=== PATIENT | male | born 1960 | race Caucasian/White ===

== ENCOUNTER → 2022-07-21 08:31 | Outpatient (BNVA) | payer OTHER, SELFPAY | PROVIDERS: Visit Provider Surgery | DX: Z12.11 Encounter for screening for malignant neoplasm of colon (principal) | CPT/HCPCS: 99203 ==

== ENCOUNTER 2022-11-11 06:10 | Day surgery (SDC) | payer OTHER, SELFPAY ==
[2022-11-06 08:47] VITALS: BMI 26.2
[2022-11-11 06:43] VITALS: BP 136/107; PULSE 95; RESP 18; TEMP 36.5; O2SAT 97
[2022-11-11] MEDS: sodium chloride 0.9% 1,000 ML 30 ML IV (06:51)
--- NOTE | 2022-11-11 06:58 | ANES.PREANE2 ---
Pre-Anesthetic Assessment Height/Weight: Height 1.74 m Weight 79.379 kg Temp Pulse Resp BP Pulse Ox O2 Del Method 97.7 F 95 18 136/107 97 11/11/22 06:43 11/11/22 06:43 11/11/22 06:43 11/11/22 06:43 11/11/22 06:43 11/11/22 06:43 Operation Date: 11/11/22 07:30 Proposed Procedures p Colonoscopy 13136,Z12.11(Not Applicable) - Jamie Kang, DO Was Beta Devon taken within 24 hours: N/A Was Clonidine taken within 24 hours: N/A Last intake: Intake Last Liquid Date 11/10/22 Last Liquid Time 22:30 Last Solid Date 11/09/22 Last Solid Time 17:00 Social No alcohol and No tobacco Exam alert, oriented x 3, clear to auscultation bilaterally and regular rate & rhythm Airway Submandibular: within normal limits Cervical ROM: within normal limits Mallampati: Class I History/ROS No significant history except as noted and No significant complaints Pulmonary recent breathing test due to mucous after service in [facility], operated by [facility], unremarkable CV/HEM None reported None reported Hepatic None reported GI None reported Metabolic None reported Musc/skel None reported Neuropsych None reported Anesthetic Plan ASA status: 2 Anesthesia: Anesthesia Evaluation and MAC Risk of > 500 ml blood loss (7ml/kg in children): No Medications/Allergies Home Medications Medication Instructions Recorded Confirmed Last Taken Type cholecalciferol (vitamin D3) 10 10 mcg PO .QOTHERDAY 07/21/22 11/11/22 11/08/22 History mcg (400 unit) tablet fluticasone propionate 50 1 spray intranasal DAILY PRN 07/21/22 11/11/22 11/08/22 History mcg/actuation nasal Congestion spray,suspension (Flonase Allergy Relief) Allergies Allergy/AdvReac Type Severity Reaction Status Date / Time No Known Allergies Allergy Unverified 11/06/22 08:43 Current Medications Generic Name Dose Route Start Last Admin Trade Name Freq PRN Reason Stop Dose Admin Sodium Chloride 1,000 mls @ 30 mls/hr 11/11/22 06:45 11/11/22 06:51 Sodium Chloride 0.9% IV 11/12/22 06:44 30 mls/hr .Q24H KAMRYN Administration PFSH Anesthesia Surgical History Hx of hernia repair Social History Smoking and tobacco status: never smoked Data Anesthesia Cardiac Studies: No Data to Display
--- NOTE | 2022-11-11 07:28 | P.HP_ITS ---
Providers/Chief Complaint Primary Care Provider: Amie Dunaway MD Chief Complaint: Z12.11 History of Present Illness Gonzalo Drake is a 62 year old male here for colonoscopy Medications/Allergies Home Medications Medication Instructions Recorded Confirmed Last Taken Type cholecalciferol (vitamin D3) 10 10 mcg PO .QOTHERDAY 07/21/22 11/11/22 11/08/22 History mcg (400 unit) tablet fluticasone propionate 50 1 spray intranasal DAILY PRN 07/21/22 11/11/22 11/08/22 History mcg/actuation nasal Congestion spray,suspension (Flonase Allergy Relief) Allergies Allergy/AdvReac Type Severity Reaction Status Date / Time No Known Allergies Allergy Unverified 11/06/22 08:43 PFSH Acute PFSH: Surgical History Hx of hernia repair Social History Smoking and tobacco status: never smoked Vitals/I&O/Wt Last Vital Signs Temp 97.7 F 11/11/22 06:43 Pulse 95 11/11/22 06:43 Resp 18 11/11/22 06:43 BP 136/107 11/11/22 06:43 Pulse Ox 97 11/11/22 06:43 O2 Del Method 11/11/22 06:43 A&P Assessment and plan (1) Colon cancer screening: Plan Colonoscopy Attestations Medical Necessity Statement*: Home Coding Level of Care Code Acute Home Visit Field Care Manager for Chg Fwd Diagnoses Colon cancer screening Z12.11
[2022-11-11 07:48] VITALS: BP 103/76; PULSE 76; RESP 14; TEMP 36.1; O2SAT 94
[2022-11-11 07:58] VITALS: BP 105/82; PULSE 92; RESP 16; O2SAT 99
--- NOTE | 2022-11-11 17:35 | ANE.PACU2 ---
Inpatient post-anesthesia follow up: Airway intact: Yes Vital signs: Temperature 97.0 F Pulse Rate 92 Respiratory Rate 16 Blood Pressure 105/82 Pulse Oximetry 99 Oxygen Delivery Me thod Room Air Oxygen Flow Rate Fraction of Inspir ed Oxygen Hydration adequate: Yes Nausea and vomiting: No Pain level: 1 Mental status: Baseline
== END 2022-11-11 08:18 | disposition home or self-care (01) ==
PROVIDERS: PCP Family Medicine; Visit Provider Surgery
PROC: 0DJD8ZZ Inspection of Lower Intestinal Tract, Via Natural or Artificial Opening Endoscopic (ICD-10-PCS; CPT 45378; principal; 2022-11-11 07:30)
DX: Z12.11 Encounter for screening for malignant neoplasm of colon (principal)
CPT/HCPCS: 45378; J2704; J7030

== ENCOUNTER 2024-10-27 13:13 | Outpatient (CLI) | payer OTHER, SELFPAY | END 2024-10-27 13:14 | disposition home or self-care (01) | LOC: LAB 13:16 | PROVIDERS: PCP Family Medicine; Visit Provider Urology | DX: R97.20 Elevated prostate specific antigen [PSA] (principal) | CPT/HCPCS: 84153 ==

== ENCOUNTER 2025-02-12 15:20 | Outpatient (CLI) | payer OTHER, SELFPAY | END 2025-02-12 15:21 | disposition home or self-care (01) | LOC: LAB 15:25 | PROVIDERS: PCP Family Medicine; Visit Provider Urology | DX: R97.20 Elevated prostate specific antigen [PSA] (principal) | CPT/HCPCS: 36415; 84153 ==